=== PATIENT | male | born 1980 | race African-American/Black ===

== ENCOUNTER 2021-09-17 12:19 | Emergency (ER) | payer OTHER, SELFPAY ==
[2021-09-17 12:28] VITALS: BP 123/77; PULSE 63; RESP 14; TEMP 36.6; O2SAT 100
--- NOTE | 2021-09-17 13:27 | ED.BACK ---
HPI - Back Pain/Injury General Chief Complaint: Back Pain/Injury Stated Complaint: Lower Back Pain Time Seen by Provider: 09/17/21 13:10 Source: patient Mode of arrival: ambulatory Limitations: no limitations History of Present Illness HPI Narrative: Patient presents today complaining of a 2-day history of low back pain. 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 Denies radiation of the pain. Describes the pain as spasms . Denies numbness or tingling in the legs or genitalia. Denies any loss of bowel or bladder control. He has been taking ibuprofen and wearing a back brace with mild relief and currently rates pain 11/18. Related Data Allergies Allergy/AdvReac Type Severity Reaction Status Date / Time No Known Allergies Allergy Verified 09/17/21 13:34 Review of Systems Review of Systems: CONSTITUTIONAL: Denies body aches, fever, chills, or sweats. EYES: Denies visual changes, redness, or discharge. ENT: Denies rhinorrhea, congestion, sore throat, or otalgia. CARDIOVASCULAR: Denies chest pain, palpitations, or edema. RESPIRATORY: Denies cough or dyspnea. GASTROINTESTINAL: Denies abdominal pain, nausea, vomiting, or diarrhea. GENITOURINARY: Denies dysuria or hematuria. SKIN: Denies rash, itching, or wounds. MUSCULOSKELETAL: Denies joint pain, or myalgia.+ Back pain NEUROLOGIC: Denies headache, numbness, tingling, or weakness. PSYCH: Denies depression or anxiety. [facility] Family History Family History Mother Hypertension Father Family history of type 2 diabetes mellitus Social History Social History Smoking status: Never smoker Alcohol intake: current Comments At time of signature, I have reviewed and agree with nursing past medical, surgical, social and family history unless otherwise noted. Please see nursing chart for further information. There is no relevant family history pertinent to the presenting complaint Exam Narrative: GENERAL: Well-appearing, well-nourished, and in no acute distress. HEAD: Normocephalic, atraumatic. EYES: EOMI. No redness or drainage. Conjunctivae normal. ENT: Mucous membranes pink and moist. NECK: Normal AROM. CHEST: No respiratory distress. MUSCULOSKELETAL: No bony tenderness of the spine. Patient localizes pain in the bilateral lower lumbar paraspinal muscles, this area is nontender. Distal sensation intact. Saddle sensation intact. Capillary refill normal. Posterior tibial pulses normal. Patellar reflexes 2+. Dorsiflexion and plantarflexion equal and strong against resistance. EXTREMITIES: Normal range of motion. No edema. SKIN: Warm, dry, no rash. Capillary refill normal. Normal skin turgor. NEURO: No focal deficits. Alert and oriented x3. Gait steady. PSYCH: Normal affect. No signs of depression or anxiety. Course Course Level of Care: Express Care Visit Vital Signs Vital signs: Vital Signs Temperature 98 F 09/17/21 12:28 Pulse Rate 63 09/17/21 12:28 Respiratory Rate 14 09/17/21 12:28 Blood Pressure 123/77 09/17/21 12:28 Pulse Oximetry 100 09/17/21 12:28 Oxygen Delivery Room Air 09/17/21 12:28 Temperature 98 F 09/17/21 12:28 Pulse Rate 63 09/17/21 12:28 Respiratory Rate 14 09/17/21 12:28 Blood Pressure 123/77 09/17/21 12:28 Pulse Oximetry 100 09/17/21 12:28 Oxygen Delivery Room Air 09/17/21 12:28 Reviewed. Pt has been instructed to follow up with his PCP regarding his elevated blood pressure today. MDM - Back Pain/Injury Differential Diagnosis Differential diagnosis: Likely lumbar radiculopathy, sciatica, strain of lumbar region and other (Muscle spasm) Critical Care Time Critical Care Time Critical Care Time: No Discharge Plan Discharge Clinical Impression: Strain of lumbar region Qualifiers: Encounter type: initial encounte
== END 2021-09-17 13:38 | disposition home or self-care (01) ==
PROVIDERS: Emergency Provider Nurse Practitioner
DX: S39.012A Strain of muscle, fascia and tendon of lower back, initial encounter (principal); X58.XXXA Exposure to other specified factors, initial encounter; Y99.0 Civilian activity done for income or pay
CPT/HCPCS: 99213; G0463

== ENCOUNTER 2022-02-24 11:18 | Emergency (ER) | payer OTHER, SELFPAY ==
--- NOTE | ~2022-02-24 | XR_ITS ---
EXAMINATION: XR chest 2V DATE: 02/24/2022 13:16 INDICATION: Cough TECHNIQUE: PA and lateral views of the chest are obtained. COMPARISON: None available FINDINGS: The lungs are free of acute opacities. No pleural effusion or pneumothorax. The cardiomedia stinal silhouette is normal. The visualized bones and soft tissues are unremarkable. IMPRESSION: 1. No acute cardiopulmonary abnormality. Reviewed, dictated and finalized at location A. ECT MANAGEMENT ADVISOR
[2022-02-24 11:21] VITALS: BP 141/90; PULSE 70; RESP 16; TEMP 36.8; O2SAT 100
[2022-02-24 12:39] VITALS: PULSE 62
--- NOTE | 2022-02-24 12:57 | ED.GENADULT ---
HPI - General Adult General Chief complaint: Unspecified Stated complaint: left sided facial droop since last sat Time Seen by Provider: 02/24/22 12:40 History of Present Illness HPI narrative: Patient is a 41-year-old male presenting with left-sided facial droop. Patient states that since last Saturday he has noticed that the left side of his mouth is not moving normally. States that it is also been difficult to close his left eye completely. Patient's reports that over the last several days his left-sided facial droop has worsened and now he is unable to raise his left eyebrow. Patient states that he recently had a cold but denies any other complaints. No numbness or weakness in any extremities. No gait or speech difficulties. No chest pain, fevers, headache, vision changes, shortness of breath, abdominal pain, nausea or vomiting, diarrhea. States that he still has a cough from his recent cold. Related Data Allergies Allergy/AdvReac Type Severity Reaction Status Date / Time No Known Allergies Allergy Verified 02/24/22 11:20 Review of Systems Review of Systems: All systems reviewed & are unremarkable except as noted in HPI and below PMFSH Family History Family History Mother Hypertension Father Family history of type 2 diabetes mellitus Social History Social History Smoking status: Never smoker Alcohol intake: current Exam Narrative: GENERAL: Well-appearing, well-nourished, and in no acute distress. HEAD: Normocephalic, atraumatic. EYES: PERRLA and EOMI. ENT: Nares clear, no rhinorrhea or epistaxis. Mucous membranes moist. NECK: Supple. CHEST: Clear to auscultation. No respiratory distress. HEART: Regular rate and rhythm. No murmur heard. Normal peripheral pulses. ABDOMEN: Soft, nontender, nondistended, normal active bowel sounds. EXTREMITIES: Normal range of motion. No edema. SKIN: Warm, dry, no rash. NEURO: Alert and oriented x3. Left-sided facial droop involving the forehead, no sensory deficits, 5 out of 5 strength in all extremities PSYCH: Normal mood and affect. Course Vital Signs Vital signs: Vital Signs Temperature 98.2 F 02/24/22 11:21 Pulse Rate 70 02/24/22 11:21 Respiratory Rate 16 02/24/22 11:21 Blood Pressure 141/90 H 02/24/22 11:21 Pulse Oximetry 100 02/24/22 11:21 Oxygen Delivery Room Air 02/24/22 11:21 Temperature 98.2 F 02/24/22 11:21 Pulse Rate 60 02/24/22 14:38 Respiratory Rate 18 02/24/22 14:38 Blood Pressure 119/83 02/24/22 14:38 Pulse Oximetry 100 02/24/22 14:38 Oxygen Delivery Room Air 02/24/22 11:21 Medical Decision Making MDM Narrative Medical decision making narrative: Patient is a 41-year-old male presenting with left-sided facial droop. Patient is slightly hypertensive, otherwise vitals are within normal limits. Exam is remarkable for the above. It is consistent with a Storey's palsy presentation. Will obtain x-ray to evaluate for pneumonia. Plan to discharge with valacyclovir, prednisone, eye ointment, Tessalon Perles. Patient states he is already using artificial tears at home. Chest x-ray shows no evidence of pneumonia. Discussed appropriate supportive care for Storey palsy. Advised PCP and ophthalmology follow-up. Appropriate return precautions given. Patient voiced understanding and is agreeable with plan. Discharged in stable condition. Vital Signs Vital Signs: Vital Signs Temperature 98.2 F 02/24/22 11:21 Pulse Rate 70 02/24/22 11:21 Respiratory Rate 16 02/24/22 11:21 Blood Pressure 141/90 H 02/24/22 11:21 Pulse Oximetry 100 02/24/22 11:21 Oxygen Delivery Room Air 02/24/22 11:21 Temperature 98.2 F 02/24/22 11:21 Pulse Rate 60 02/24/22 14:38 Respiratory Rate 18 02/24/22 14:38 Blood Pressure 119/83 02/24/22 14:38 Pulse Oximetry 100 02/24/22 14:38 Oxygen
[2022-02-24 14:38] VITALS: BP 119/83; PULSE 60; RESP 18; O2SAT 100
== END 2022-02-24 14:40 | disposition home or self-care (01) ==
PROVIDERS: Emergency Provider Emergency Medicine
DX: G51.0 Bell's palsy (principal)
CPT/HCPCS: 71046; 99283

== ENCOUNTER 2024-12-23 15:14 | Emergency (ER) | payer OTHER, SELFPAY ==
--- NOTE | ~2024-12-23 | CT_ITS ---
CT abdomen pelvis w con INDICATION:abd pain, N/V/D . COMPARISON: None. TECHNIQUE: Axial images of the abdomen and pelvis were obtained following infusion of 100 mL Isovue 300. Dose optimization technique was utilized. FINDINGS: The lung bases are clear. The liver parenchyma is unremarkable. No intrahepatic mass or ductal dilatation is evident. The gallbladder is unremarkable. The pancreas and spleen are normal in appearance. The adrenal glands are symmetric in size. The kidneys demonstrate symmetric uptake and excretion of contrast. No cystic mass is evident. There is no solid mass. There is no hydronephrosis. Stomach and small bowel loops are unremarkable. There is mild thickening of the ascending, transverse and descending colon with mild adjacent induration suggestive of nonspecific infectious or inflammatory colitis. No evidence of acute appendicitis. The bladder and rectum are normal. No free intraperitoneal fluid or air is evident. There is no significant retroperitoneal lymphadenopathy. The aorta, visceral vessels and renal arteries demonstrate normal caliber and patency. The lower thoracic and lumbar vertebrae are in normal alignment. IMPRESSION: Thickening and induration of the colonic wall suggestive of infectious or inflammatory colitis. All CT scans at this facility are performed using low dose modulation techniques as appropriate to perform exam including the following: automated exposure control; use of iterative reconstruction technique; adjustment of the mA and/or kV according to patient size (this includes techniques or standardized protocols for targeted exams where dose is matched to indication/reason for exam). Reviewed, dictated and finalized at location S. IMPRESSION: Thickening and induration of the colonic wall suggestive of infectious or infla mmatory colitis. All CT scans at this facility are performed using low dose modulation techniqu es as appropriate to perform exam including the following: automated exposure c ontrol; use of iterative reconstruction technique; adjustment of the mA and/or kV according to patient size (this includes techniques or standardized protocol s for targeted exams where dose is matched to indication/reason for exam).
[2024-12-23 15:19] VITALS: BP 144/83; PULSE 60; RESP 18; TEMP 36.1; O2SAT 100
[2024-12-23 18:35] LABS: Hematocrit 37.5 % (42.0-52.0); Hemoglobin 12.5 g/dL (14.0-18.0); Immature Granulocyte Percent A 0.3 % (0-0.5); Lymphocytes Absolute Auto 1.14 K/mm3 (0.9-3.2); Mean Corpuscular HGB Conc 33.3 g/dl (32-36); Mean Corpuscular Hemoglobin 33.5 pg (26-34); Mean Corpuscular Volume 100.5 fl (80-100); Nucleated Red Blood Cells Absolute Auto 0.000 K/mm3 (0.0-0.012); Nucleated Red Blood Cells Perc 0.0 % (0.0-0.2); Platelet Count Result 198 k/mm3 (150-375); Red Blood Count 3.73 M/mm3 (4.6-6.20); White Blood Count 13.2 K/mm3 (4.5-10.0)
[2024-12-23 18:41] LABS: Alanine Aminotransferase 20 U/L (6-50); Albumin Level 4.4 g/dL (3.5-5.1); Alkaline Phosphatase 50 U/L (38-126); Anion Gap 7 mmol/L (4-12); Aspartate Amino Transferase 24 U/L (17-59); Bilirubin,Total 0.7 mg/dL (0.2-1.3); Blood Urea Nitrogen 9 mg/dL (9-20); Calcium 9.4 mg/dL (8.4-10.2); Carbon Dioxide 25 mmol/L (22-30); Chloride 106 mmol/L (98-107); Estimated CRCL calculation 107 ml/min; Estimated Glomerular Filt Rate > 60; Glucose 129 mg/dL (65-110); Lipase 17 U/L (23-300); Potassium 4.2 mmol/L (3.4-5.0); Sodium 138 mmol/L (137-145); Total Protein 7.4 g/dL (6.3-8.2)
[2024-12-23 18:43] LABS: Add Urine Microscopic? YES; Appearance Urine Clear (Clear); Glucose Urine UA Trace mg/dL (Negative); Leukocyte Esterase Ur Negative LEU/UL (Negative); Need Manual Microscopic Reviewed; Nitrate Urine Negative (Negative); Non Pathogenic Casts 0-2; Specific Grav Ur 1.027 (1.001-1.035)
[2024-12-23 18:50] VITALS: BP 113/66; PULSE 64; RESP 13; O2SAT 100
[2024-12-23 18:51] LABS: Magnesium 1.6 mg/dL (1.6-2.3)
[2024-12-23] MEDS: MORPHINE SULFATE (*CRX) 4 MG/ML INJ IV PUSH (18:51)
[2024-12-23] MEDS: ONDANSETRON INJ 4 MG/2 ML VIAL IV PUSH (18:51)
[2024-12-23] MEDS: SODIUM CHLORIDE 0.9% IV 1,000 ML 999 ML IV CONT (18:51)
[2024-12-23] MEDS: MAGNESIUM SULF 2 GM/WATER 50ML 2 GM/50 ML BAG IVPB (20:02)
--- NOTE | 2024-12-23 20:02 | ED_ITS ---
HPI - Nausea/Vomiting/Diarrhea General Chief complaint: Nausea/Vomiting/Diarrhea Stated complaint: vomiting since this am, food poisoning? Time Seen by Provider: 12/23/24 17:48 Source: patient Mode of arrival: ambulatory Limitations: no limitations History of Present Illness HPI Narrative: Patient is a 44-year-old male who presents the ED with report of nausea, vomiting, diarrhea. Patient reports he woke up this morning with nausea, vomiting, diarrhea. Has had multiple episodes of each. Has had intermittent episodes of diaphoresis. Denies known fever. Reports diffuse abdominal pain. Denies rectal bleeding, melena, hematemesis, sick contacts. Does note that he ate chorizo last night and feels it may have been bad pork. Related Data Allergies Allergy/AdvReac Type Severity Reaction Status Date / Time No Known Allergies Allergy Verified 12/23/24 15:18 Review of Systems 2 Review of Systems: All systems reviewed & are unremarkable except as noted in HPI. All systems reviewed & are unremarkable except as noted in HPI and below PMFSH Family History Family History Mother Hypertension Father Family history of type 2 diabetes mellitus Social History Social History Smoking status: Never smoker Alcohol intake: current Exam 2 Narrative: GENERAL: Well appearing, well-nourished, non-toxic, in no acute distress. HEAD: Normocephalic, atraumatic. RESPIRATORY: Airway patent, respirations nonlabored. Clear to auscultation bilaterally, no rales, rhonchi, wheezing. CARDIOVASCULAR: Regular rate and rhythm without murmurs, rubs, or gallops. ABDOMINAL: Soft, diffuse tenderness throughout upper and left-sided abdomen, nondistended. Normoactive BS. MUSCULOSKELETAL: Moves all extremities. No gross deformities. SKIN: Warm, dry, normal color. NEURO: A&O X3. Speech clear. Cranial nerves II-XII grossly intact. Steady gait. No ataxic movements. PSYCHIATRIC: Appropriate mood and affect. Normal interaction. Course Vital Signs Vital signs: Vital Signs Temperature 97.0 F L 12/23/24 15:19 Pulse Rate 60 12/23/24 15:19 Respiratory Rate 18 12/23/24 15:19 Blood Pressure 144/83 H 12/23/24 15:19 Pulse Oximetry 100 12/23/24 15:19 Oxygen Delivery Room Air 12/23/24 15:19 Temperature 97.0 F L 12/23/24 15:19 Pulse Rate 79 12/23/24 20:07 Respiratory Rate 18 12/23/24 20:07 Blood Pressure 102/68 12/23/24 20:07 Pulse Oximetry 100 12/23/24 20:07 Oxygen Delivery Room Air 12/23/24 15:19 MDM - Nausea/Vomiting/Diarrhea MDM Narrative Medical decision making narrative: Patient presented to ED with nausea, vomiting, diarrhea, abdominal pain, onset this morning. Feels as though he may have ate bad pork last night. Vital signs are stable upon arrival. Patient is afebrile. Cbc with white blood cell count of 13.2. Possibly in part reactive from vomiting. H&H stable. CMP is unremarkable. Stable electrolytes. Stable kidney function. Mag borderline at 1.6. Given replacement. Normal LFTs and lipase. UA with evidence of dehydration, small amount of RBC, no evidence of infection. CT scan of abdomen/pelvis was obtained and showing likely inflammatory versus infectious colitis. Showing thickening of ascending, transverse, descending colon. No other surgical findings. Discussed lab and imaging findings with patient. Will treat for infectious colitis given acute leukocytosis. Will be started on antibiotics. Given 1st doses of Cipro/Flagyl in the ED. Patient is feeling better with supportive therapy. Able to tolerate p.o. intake. Safe for discharge home. Will also discharge with Bentyl and Zofran for home use. Patient advised to follow-up with PCP. Given strict return precautions. He agrees with plan. Discharged in stable condition. Medical Records Attestation: I reviewed the patient's medical records. Lab Data Attestation: I reviewed the patient's lab results. 12/23/24 18:24 12/23/24 18:24 Labs: Lab Results 12/23/24 12/23/24 Range/Units 18:24 18:29 WBC 13.2 H (4.5-10.0) K/mm3 RBC 3.73 L (4.6-6.20) M/mm3 Hgb 12.5 L (14.0-18.0) g/dL Hct 37.5 L (42.0-52.0) % MCV 100.5 H (80-100) fl MCH 33.5 (26-34) pg MCHC 33.3 (32-36) g/dl RDW 13.7 (11.5-14.5) % Plt Count 198 (150-375) k/mm3 MPV 10.6 H (7.4-10.4) fl Immature Gran % (Auto) 0.3 (0-0.5) % Neut % (Auto) 88.1 H (45.5-73.1) % Lymph % (Auto) 8.6 L (18.3-44.2) % [place] % (Auto) 2.9 (2.6-8.5) % Eos % (Auto) 0.0 (0-4.4) % Baso % (Auto) 0.1 L (0.2-1.2) % Lymph # (Auto) 1.14 (0.9-3.2) K/mm3 [place] # (Auto) 0.4 (0.1-0.6) K/mm3 Eos # (Auto) 0.0 (0-0.3) K/mm3 Baso # (Auto) 0.0 (0.0-0.1) K/mm3 Abs Immat Gran (auto) 0.04 H (0.00-0.031) K/mm3 Absolute Neuts (auto) 11.6 H (1.3-6.7) K/mm3 Absolute Nucleated RBC 0.000 (0.0-0.012) K/mm3 Nucleated RBC % 0.0 (0.0-0.2) % Sodium 138 (137-145) mmol/L Potassium 4.2 (3.4-5.0) mmol/L Chloride 106 (98-107) mmol/L Carbon Dioxide 25 (22-30) mmol/L Anion Gap 7 (4-12) mmol/L BUN 9 (9-20) mg/dL Creatinine 0.75 (0.7-1.3) mg/dL Estim Creat Clear Calc 107 ml/min Estimated GFR > 60 (59 - ) Glucose 129 H (65-110) mg/dL Calcium 9.4 (8.4-10.2) mg/dL Magnesium 1.6 (1.6-2.3) mg/dL Total Bilirubin 0.7 (0.2-1.3) mg/dL AST 24 (17-59) U/L ALT 20 (6-50) U/L Alkaline Phosphatase 50 (38-126) U/L Total Protein 7.4 (6.3-8.2) g/dL Albumin 4.4 (3.5-5.1) g/dL Lipase 17 L (23-300) U/L Urine Color Yellow (Yellow) Urine Appearance Clear (Clear) Urine pH >=9.0 H (5.0-9.0) Ur Specific [place] 1.027 (1.001-1.035) Urine Protein 2+ H (Negative) mg/dL Urine Glucose (UA) Trace H (Negative) mg/dL Urine Ketones 2+ H (Negative) mg/dL Ur Blood (Man) Negative (Negative) Urine Nitrate Negative (Negative) Urine Bilirubin Negative (Negative) Urine Urobilinogen 1.0 (<2.0) mg/dL Add Ur Microanalysis Reviewed Leukocyte Esterase Rfl Negative (Negative) SHWETA/UL Urine RBC 11-20 H (0-2) /hpf Urine WBC 0-5 (0-3) /hpf Ur Squamous Epith Cells None seen (Few) /hpf Urine Bacteria None seen /hpf Urine Casts 0-2 Imaging Data Attestation: I personally reviewed and interpreted this imaging study as follows: Radiologist's impression: ITS Impressions Abdomen/Pelvis CT 12/23/24 19:38 IMPRESSION: Thickening and induration of the colonic wall suggestive of infectious or inflammatory colitis. All CT scans at this facility are performed using low dose modulation techniques as appropriate to perform exam including the following: automated exposure control; use of iterative reconstruction technique; adjustment of the mA and/or kV according to patient size (this includes techniques or standardized protocols for targeted exams where dose is matched to indication/reason for exam). Discharge Plan Discharge Clinical Impression: Colitis Nausea and vomiting Qualifiers: Vomiting type: unspecified Qualified Code(s): R11.2 - Nausea with vomiting, unspecified Patient Disposition: Home Condition: Stable Instructions: Antibiotic Form, Clear Liquid Diet (ED), Acute Nausea and Vomiting (ED), Colitis (ED) Additional Instructions: Take antibiotics as prescribed for colitis. Avoid alcohol use while taking Flagyl. Utilize zofran as needed for further nausea. Recommend Tylenol, Bentyl as needed for further abdominal discomfort. Increase fluid intake. Recommend electrolyte rich fluids, gatorade, pedialyte, body armour. Recommend clear liquids or bland diet until symptoms improve, such as bananas, rice, applesauce, toast, or crackers. Follow up with your primary care doctor for further evaluation. Return to the ED if you experience worsening or severe symptoms, unable to keep down food or drink, severe pain, fevers, rectal bleeding, dark black stools, vomiting blood, or any other symptoms of concern. Patient Language: Par[place] Prescriptions: New metronidazole 500 mg tablet 500 mg PO Q8H 7 Days Qty: 21 0RF ciprofloxacin HCl 500 mg tablet 500 mg PO Q12H 7 Days Qty: 14 0RF dicyclomine 20 mg tablet 20 mg PO TID PRN (Reason: Abdominal Discomfort) Qty: 15 0RF ondansetron 4 mg tablet,disintegrating 4 mg PO Q8H PRN (Reason: nausea and vomiting) Qty: 15 0RF No Action cyclobenzaprine 10 mg tablet 10 mg PO TID PRN (Reason: muscle spasm) Qty: 20 0RF prednisone 50 mg tablet 50 mg PO DAILY 5 Days Qty: 5 0RF prednisone 20 mg tablet 60 mg PO DAILY 7 Days Qty: 21 0RF valacyclovir 500 mg tablet 1,000 mg PO TID 7 Days Qty: 42 0RF Artificial Eye Lubricant 83-15 % ointment 1 applic LEFT EYE HS Qty: 3.5 0RF benzonatate 100 mg capsule 100 mg PO TID PRN (Reason: cough) Qty: 20 0RF Follow-up/Referrals: Brett Aguilar MD [Physician, Family Practice] Referral Note: PRIMARY CARE UNKNOWN,DOCTOR [Primary Care Provider] Time of Disposition: 20:36
[2024-12-23 20:07] VITALS: BP 102/68; PULSE 79; RESP 18; O2SAT 100
[2024-12-23] MEDS: CIPROFLOXACIN 500 MG TAB PO (20:56)
[2024-12-23 21:03] VITALS: BP 102/60; PULSE 88; RESP 20; TEMP 36.7; O2SAT 100
== END 2024-12-23 21:04 | disposition home or self-care (01) ==
PROVIDERS: Emergency Provider Physician Assistant
DX: K52.9 Noninfective gastroenteritis and colitis, unspecified (principal)
CPT/HCPCS: 36415; 74177; 80053; 81001; 83690; 83735; 85025; 96361; 96365; 96375; 99284; A9270; J2270; J2405; J3475; J7030; Q9967